=== PATIENT | female | born 1965 | race African-American/Black ===

== ENCOUNTER 2016-12-21 11:59 | Inpatient (IN) ==
--- NOTE | 2016-12-21 12:24 | Emergency Department Note ---
Arrival - Arrival Chief Complaint: Non-Specific Stated Complaint: H&H is low ED Nursing Triage Note: States she was sent from Dr. Martínez' office for further evaluation of low H&H. Reports she was told her hemoglobin was 4. Denies any symptoms. Mode of Arrival: Ambulatory Limitations: No Limitations Source: Patient Time Seen by Provider: 12/21/16 12:20 - History of Present Illness HPI Narrative: This 51-year-old black female who presents on referral from Dr. Martínez's office for alleged hemoglobin of 4.0. The patient denies any significant complaints of orthostasis, dizziness, chest pain, shortness of breath, bright red blood per bowel movement, black tarry bowel movement movements, severe reflux, or jaundice. She does state she has a long-standing history of chronic anemia. Currently she is in no distress and feels quite normal. Onset (ago): unknown Date of Last Menstrual Period: 12/10/16 Allergies/Adverse Reactions: Allergies Allergy/AdvReac Type Severity Reaction Status Date / Time Penicillins Allergy HIVES Verified 06/12/15 21:19 Home Medications: Home Medications Medication Instructions Recorded Confirmed Type LORazepam TAB [Ativan Tab] 1 mg PO BID PRN #20 tablet 06/12/15 Rx hydroCHLOROthiazide 25 mg PO DAILY 06/12/15 06/12/15 History [Hydrochlorothiazide] Furosemide Tab [Lasix Tab] 20 mg PO DAILY 5 Days 11/29/16 Rx Spironolactone [Spironolactone] 50 mg PO DAILY 12/21/16 History Review of System - Review of System 12 point system: reviewed and no additional remarkable complaints except as stated - Review of System Constitutional: Present: as per HPI Respiratory: Present: as per HPI Cardiovascular: Present: as per HPI Gastrointestinal: Present: as per HPI Medical,Surgical,& Family Hx - Medical History Cardio: History of: Hypertension Endocrine: History of: Thyroid Disorder Hematology: History of: Anemia - Social History Smoking Status: Never smoker Frequency of Alcohol Use: None Type of Drug Use: None Exam Physical Examination: GENERAL: Obese black female in no acute distress. HEENT: Normocephalic. No trauma. Moist but very pale mucous membranes. EOMI. PERRLA. ENT NML NECK: Supple. No adenopathy. CARDIAC: Regular. No murmurs. Heart rate 75 CHEST: Clear to auscultation. No respiratory distress. O2 sat 100% ABDOMEN: Soft. Nontender. Active bowel sounds. EXTREMITIES: No trauma. Normal ROM. No pedal edema. SKIN: No diaphoresis. No rash. Very pale nailbeds NEURO: Alert. Neuro intact. No focal deficits. Vital Signs: Vital Signs Temperature 98.6 F 12/21/16 12:05 Pulse Rate 66 12/21/16 12:05 Respiratory Rate 16 12/21/16 12:05 Blood Pressure 174/80 12/21/16 12:05 O2 Sat by Pulse Oximetry 100 12/21/16 12:05 Course - Reevaluation(s) Reevaluation #1: Advised patient that her low hemoglobin was true and that she would need hospitalization especially in light of possible high output failure as documented on chest x-ray. - Consultations Consultation #1: Discussed with hospitalist service who will admit for further evaluation treatment. Results - Labs CBC & BMP: 12/21/16 12:26 12/21/16 12:26 Labs: I have reviewed the lab and noted the significantly abnormal hemoglobin but normal folate, bilirubin, and B12 levels. - Diagnostic Findings Procedure: Chest x-ray: image reviewed by me, report reviewed by me ( Cardiomegaly with borderline pulmonary edema with an instructor scheduled fluid versus scar) Disposition Clinical Impression: Severe anemia, High-output failure Case discussed with: patient Disposition: Still a Patient Condition: Guarded Time of Disposition: 13:40
[2016-12-21 12:59] LABS: PT Patient Result 10.6 SECS; Partial Thromboplastin Time 21.7 SECS (0-40)
[2016-12-21 13:06] LABS: Eosinophils # 0.1 10*3/uL (0.0-0.87); Immature Granulocytes % 0.2 %; Immature Granulocytes Absolute 0.01 #; Lymphocytes # 2.2 10*3/uL (1.4-4.0); Lymphocytes % 54.1 % (21.3-54.2); Mean Corpuscular HGB Conc 24.6 GM/DL (32-36); Mean Corpuscular Hemoglobin 16 PG (27-34); Mean Corpuscular Volume 65.6 FL (87-102); Mean Platelet Volume 9.5 FL (9.6-12.0); Monocytes # 0.5 10*3/uL (0.11-0.8); Monocytes % 11.9 % (1.7-12.7); Neutrophils # 1.3 10*3/uL (1.4-7.4); Neutrophils % 31.8 % (38.7-73.9); Platelet Count 445 T/CUMM (130-400); Red Blood Count 2.73 MC/CUMM (3.8-5.5); Red Cell Distribution Width 28.5 % (9.3-17.3)
--- NOTE | 2016-12-21 13:10 | XRay Report ---
XR chest 1V portable Indication: SOB Comparison: None Technique: Single frontal view of the chest. Findings: Borderline cardiomegaly. There is nonspecific prominence of lung markings suspicious for interstitial pulmonary edema. Chronic/fibrotic change and interstitial pneumonia may have similar appearance. Visualized osseous and surrounding soft tissue structures demonstrate no acute abnormality. IMPRESSION: As above. PROCEDURE INTERPRETED AT [facility] DEPARTMENT OF RADIOLOGY Final Report Signed by: Dr Vicente Hatfield
[2016-12-21 13:14] LABS: Hematocrit 17.9 VOL% (35.7-47.0); Hemoglobin 4.4 GM/DL (12.0-16.0)
[2016-12-21 13:24] LABS: Folate 19.1 NG/ML (5.4-24.0)
[2016-12-21 13:28] LABS: % Iron Saturation 3.5 % (18-50); Alanine Aminotransferase 14 U/L (13-56); Albumin 3.4 G/DL (3.4-5.0); Alkaline Phosphatase 69 U/L (45-117); Aspartate Amino Transferase 13 U/L (0-37); Bilirubin,Total < 0.39 MG/DL (0.2-1.0); Blood Urea Nitrogen 9 MG/DL (7-18); Calcium 9.4 MG/DL (8.5-10.1); Glucose 87 MG/DL (74-106); Iron 15 UG/DL (50-170); Iron Binding Capacity 431 UG/DL (250-450); Osmolality,Calculated 278.3 MOS/KG (273-304); Potassium 4.2 MMOL/L (3.5-5.1); Sodium 141 MMOL/L (136-145); Total Protein 6.5 G/DL (6.4-8.3); Troponin I Only < 0.015 NG/ML (0.00-0.045)
[2016-12-21] MEDS ORDERED: DOCUSATE SODIUM 100 MG CAPSULE PO PRN (15:08)
[2016-12-21] MEDS ORDERED: ACETAMINOPHEN 325 MG TABLET PO PRN (15:08)
[2016-12-21] MEDS ORDERED: ONDANSETRON 4 MG/2 ML VIAL IV PRN (15:08)
[2016-12-21] MEDS ORDERED: SODIUM CHLORIDE 0.9% 250 ML IV PRN ×2 (15:08→16:06)
--- NOTE | 2016-12-21 15:20 | Hospitalist History & Physical ---
<Naomi Oropeza - Last Filed: 12/21/16 15:25> Assessment and Plan (1) Anemia Status: Acute Assessment and plan: Admitted to monitored bed. Type and screen stat. Blood transfusion. Serial H& H's. Consult GI. Clear liquid diet. IV fluids. Repeat labs in am. Anemia profile. Current Visit: Yes (2) Hypertension Status: Acute Assessment and plan: Restart home medications. Current Visit: Yes History of Present Illness Chief complaint: Low H&H History of present illness: Ms. Ryder is a 51 year old black female with a history of hypertension that presents to the ED after being seen in Dr. Martínez's office. Patient stated that she was at the clinic for a follow-up on blood pressure and labs were obtained. Patient was found to have hemoglobin of 4, sent over for further evaluation. Patient reports feeling tired lately but denies any dizziness, shortness of breath, chest pain, blood in urine or stool, black tarry stools, epistaxis, or reflux. Patient does report being diagnosed with anemia in the past when has never had to receive a blood transfusion. Patient still has a menstrual cycle and stated that her period is normally 5 days with moderate to heavy blood flow on days 3-5. Patient also reports she was advised to get a hysterectomy in the past. Patient's primary care provider is Dr. Elaine Renee. Patient will be admitted to the hospitalist service for further evaluation and treatment. GI will be consulted. Home Medications Medication Instructions Recorded Confirmed Type Potassium Chloride 8 meq PO DAILY 12/21/16 12/21/16 History Spironolactone [Spironolactone] 50 mg PO DAILY 12/21/16 12/21/16 History Allergies Allergy/AdvReac Type Severity Reaction Status Date / Time Penicillins Allergy HIVES Verified 06/12/15 21:19 Medical,Surgical,& Family Hx - Medical History Cardio: History of: Hypertension Endocrine: History of: Thyroid Disorder Hematology: History of: Anemia - Social History Smoking Status: Never smoker Frequency of Alcohol Use: None Type of Drug Use: None Marital Status: Single Lives With:: Alone Functional capacity: independent ambulation - Constitutional Constitutional: Absent: chills, fever(s) - EENT Eyes: Absent: blurry vision, loss of vision Ears: Absent: decreased hearing, ear discharge Nose, mouth and throat: Absent: dysphagia, epistaxis, vertigo - Cardiovascular Cardiovascular: Present: edema. Absent: chest pain at rest, dyspnea on exertion - Respiratory Respiratory: Absent: cough, dyspnea, hemoptysis - Gastrointestinal Gastrointestinal: Absent: abdominal pain, melena, nausea, vomiting - Genitourinary Genitourinary: Absent: difficulty urinating, hematuria - Musculoskeletal Musculoskeletal: Absent: back pain, limited range of motion - Neurological Neurological: Absent: confusion, numbness - Psychiatric Psychiatric: Absent: confusion, depression - Hematologic/Lymphatic Hematologic/Lymphatic: Absent: easy bruising Exam - Constitutional Vitals: Period Temp Pulse Resp BP Sys/Green Pulse Ox Last 24 Hr 98.6 F-98.6 F 57-70 16-18 129-174/48-80 100-100 General appearance: normal weight, over weight - Head Head exam: Present: normal inspection, normocephalic - Eye Eye exam: Present: EOMI. Absent: periorbital swelling Pupils: Present: JULIANNA. Absent: dilated - ENT ENT exam: Present: normal exam - Neck Neck exam: Present: normal inspection. Absent: thyromegaly - Respiratory Respiratory exam: Present: clear to auscultation bilaterally. Absent: wheezes - Cardiovascular Cardiovascular exam: Present: regular rate and rhythm. Absent: JVD - GI/Abdominal GI/Abdominal exam: Present: normal bowel sounds, soft. Absent: tenderness - Extremities Exam Extremities exam: Present: normal capillary refill, full ROM, edema - Back Exam Back exam: Present: normal inspection - Neurological Exam Neurological exam: Present: alert, oriented X3, normal gait - Psychiatric Psychiatric exam: Present: normal affect, normal mood, depressed - Skin Skin exam: Present: normal color, warm, dry Results - Labs CBC & BMP: 12/21/16 12:26 12/21/16 12:26 Lab Results: I have reviewed the past 24 hour labs <Tabatha Srinivasan - Last Filed: 12/21/16 16:17> Assessment and Plan (1) Iron deficiency anemia due to chronic blood loss Status: Acute Assessment and plan: consult Dr. Malone, clear liquids, iron infusion, 4 units of PRBC Current Visit: Yes (2) Hypertension Status: Acute Assessment and plan: cont spironolactone, normal bnp, echo Current Visit: Yes (3) Morbid obesity Status: Acute Assessment and plan: already trying to lose weight Current Visit: Yes History of Present Illness History of present illness: Ms. Ryder is a 51 year old female Medical,Surgical,& Family Hx - Medical History Cardio: History of: Cardiovascular Problems (palpitations) - Surgical History Additional Surgical History: none - Family History Family History: Reports;: Family Hypertension Denies;: Family Diabetes, Family Heart Disease, Family Stroke - Gastrointestinal Gastrointestinal: Absent: coffee ground emesis, constipation, diarrhea, dyspepsia, heartburn, hematochezia - Endocrine Endocrine: Present: fatigue, heat intolerance Exam - Constitutional Vitals: Period Temp Pulse Resp BP Sys/Green Pulse Ox Last 24 Hr 98.6 F-98.6 F 57-70 16-18 129-174/48-80 100-100 - Eye Eye exam: Absent: scleral icterus Pupils: Present: normal accommodation - Neck Neck exam: Present: thyromegaly (goiter ). Absent: lymphadenopathy - Neurological Exam Neurological exam: Present: CN II-XII intact, reflexes normal. Absent: motor sensory deficit - Psychiatric Psychiatric exam: Absent: depressed - Skin Skin exam: Present: other (pale conjunctiva ) Results - Labs CBC & BMP: 12/21/16 12:26 12/21/16 12:26 - Diagnostic Findings Procedure: Chest x-ray: report reviewed by me (pulmonary edema )
[2016-12-21] MEDS: SODIUM CHLORIDE 0.9% 1,000 ML IV SCH (16:49)
[2016-12-21] MEDS ORDERED: IRON DEXTRAN 50 MG in SYRINGE 1 EACH IV ONE (17:00)
[2016-12-21 20:34] LABS: Anisocytosis 1+; Hypochromasia 2+; Poikilocytosis 1+
[2016-12-21 20:35] LABS: Microcytosis 2+; Platelet Estimate Increased; Tear Drop Cells Few
[2016-12-21] MEDS: PANTOPRAZOLE 40 MG TABLET PO SCH (20:52)
[2016-12-22] MEDS: SODIUM CHLORIDE 0.9% 1,000 ML IV SCH ×2 (04:42→18:46)
[2016-12-22 07:12] LABS: Basophils % 0.6 % (0.0-0.8); Eosinophils # 0.1 10*3/uL (0.0-0.87); Eosinophils % 1.7 % (0.00-10.9); Hematocrit 27.6 VOL% (35.7-47.0); Hemoglobin 7.9 GM/DL (12.0-16.0); Immature Granulocytes % 0.2 %; Immature Granulocytes Absolute 0.01 #; Lymphocytes # 2.1 10*3/uL (1.4-4.0); Lymphocytes % 44.8 % (21.3-54.2); Mean Corpuscular HGB Conc 28.6 GM/DL (32-36); Mean Corpuscular Hemoglobin 21 PG (27-34); Mean Corpuscular Volume 72.6 FL (87-102); Monocytes # 0.5 10*3/uL (0.11-0.8); Monocytes % 9.6 % (1.7-12.7); Neutrophils % 43.1 % (38.7-73.9); Platelet Count 342 T/CUMM (130-400); Red Cell Distribution Width 27.8 % (9.3-17.3); White Blood Count 4.7 T/CUMM (4-12)
[2016-12-22 07:13] LABS: Hematocrit 28.2 VOL% (35.7-47.0); Hemoglobin 8.1 GM/DL (12.0-16.0)
[2016-12-22] MEDS ORDERED: SODIUM CHLORIDE 0.9% IV ONE (08:00)
[2016-12-22] MEDS ORDERED: IRON DEXTRAN IV ONE (08:00)
[2016-12-22 08:28] LABS: Calcium 8.9 MG/DL (8.5-10.1); Magnesium 1.9 MG/DL (1.8-2.4); Osmolality,Calculated 277.3 MOS/KG (273-304); Risk Ratio 2.05; Thyroid Stimulating Hormone 2.62 uIU/ml (0.358-3.74); VLDL CHOLESTEROL 8.2 MG/DL
[2016-12-22] MEDS: PANTOPRAZOLE 40 MG TABLET PO SCH ×2 (08:56→20:51)
[2016-12-22] MEDS: SPIRONOLACTONE 50 MG TABLET PO SCH (08:56)
[2016-12-22 10:23] LABS: Hypochromasia 2+; Microcytosis 1+; Platelet Estimate Adequate; Target Cells Slight
--- NOTE | 2016-12-22 12:41 | Hospitalist Progress Note ---
Assessment and Plan (1) Iron deficiency anemia due to chronic blood loss Status: Acute Assessment and plan: consult Dr. Guillermo, hemoglobin is 8 today, EGD and colonoscopy most likely on Saturday. Continue iron infusion Current Visit: Yes (2) Hypertension Status: Acute Assessment and plan: cont spironolactone, echocardiogram done but reading is pending. Current Visit: Yes (3) Morbid obesity Status: Acute Assessment and plan: already trying to lose weight Current Visit: Yes Hospitalist: Subjective Interval history: Patient feels much better after 4 units of blood. We will advance full liquid diet. Patient will be seen by Dr. Guillermo today but will need an EGD and colonoscopy on Saturday. Patient currently getting iron infusion. We will start her on MiraLAX as she has not had a bowel movement we need to guaiac her stools. Exam - Constitutional Vitals: Period Temp Pulse Resp BP Sys/Green Pulse Ox Last 24 Hr 98.0 F-99.2 F 52-73 16-20 107-157/46-94 98-100 Exam: Heart Rate-[RRR] Lungs-[CTAB] GI-[+bs soft, NT] Ext-[no edema] Neuro [Motor 5/5], [alert and oriented times 3] psych [normal mood and affect] General [no acute distress] Conjunctiva still looking pale Results - Labs CBC & BMP: 12/22/16 06:48 12/22/16 06:48 Lab Results: I have reviewed the past 24 hour labs
[2016-12-22] MEDS: POLYETHYLENE GLYCOL POWDER 17 GM PACK PO SCH (12:47)
--- NOTE | 2016-12-22 12:59 | Gastrointestinal Consult Note ---
Assessment and Plan - Time spent with patient Time spent with patient: Greater than 30 minutes (1) Iron deficiency anemia due to chronic blood loss Status: Acute Current Visit: Yes (2) Other specified counseling Status: Acute Current Visit: Yes History of Present Illness History of present illness: Ms. Ryder is a 51 year old female Home Medications Medication Instructions Recorded Confirmed Type Potassium Chloride 8 meq PO DAILY 12/21/16 12/21/16 History Spironolactone [Spironolactone] 50 mg PO DAILY 12/21/16 12/21/16 History Allergies Allergy/AdvReac Type Severity Reaction Status Date / Time Penicillins Allergy HIVES Verified 06/12/15 21:19 Medical,Surgical,& Family Hx - Medical History Cardio: History of: Hypertension, Cardiovascular Problems (palpitations) Endocrine: History of: Thyroid Disorder Hematology: History of: Anemia - Family History Family History: Reports;: Family Hypertension Denies;: Family Anesthesia Reaction, Family Cancer, Family Diabetes, Family Heart Disease, Family Hematology, Family Psychiatric Problems, Family Stroke, Additional Family History - Social History Smoking Status: Never smoker Frequency of Alcohol Use: None Type of Drug Use: None Exam - Constitutional Vitals: Period Temp Pulse Resp BP Sys/Green Pulse Ox Last 24 Hr 98.0 F-99.2 F 52-73 16-20 107-157/46-94 98-100 Results - Labs CBC & BMP: 12/22/16 06:48 12/22/16 06:48 Note Addendum: PLEASE NOTE -- automatic citation of patient information is unavoidable in this electronic note. I have made a reasonable effort to review the information cited , but it is not a part of my evaluation, impression, or recommendation unless specifically discussed in the dictated text that follows. As well, voice recognition software was used in the creation of this clinical note. Reasonable effort was made to identify and correct gross errors. Despite proofreading, errors in flumer may be present, including nonsense verbiage at times. If you encounter such an error, please contact me at for discussion and correction. -- [place] Chief complaint: symptomatic anemia History of present illness: This is a new patient, a 51-year-old female seen by consultation for evaluation of symptomatic anemia. The patient is admitted to the hospitalist service under the care of Dr. Srinivasan with a primary diagnosis of same. The patient was admitted yesterday through the emergency department with primary complaint of fatigue. Evaluation at that time revealed severe anemia with hemoglobin less than 5 g/dL but intact hemodynamics. The patient reported no overt gastrointestinal bleeding but did note that she has not reached menopause and has always had heavy periods. As well, she had previously been advised to consider hysterectomy due to dysfunctional uterine bleeding but has not done so. Since her admission, she has been transfused for units of packed red blood cells with appropriate response. She reports feeling a good deal better than she did when she came in. Patient denies fever, chills, night sweats, rigors, headache, dizziness, neck pain, visual changes, redness of the eyes, dysphagia, odynophagia, difficulty chewing, chest pain, shortness of breath, abdominal pain, weight loss, nausea, vomiting, regurgitation, hematemesis, diarrhea, hematochezia, melena, proctalgia , constipation, change in bowel pattern generally, dysuria, skin changes, temperature regulation issues, flushing, easy bleeding/bruising, musculoskeletal pain, mental status change, numbness/weakness in the extremities , yellowing of the eyes/skin, cutaneous eruptions, family history of gastrointestinal cancer and colon polyps, and other complaints in general. Review of systems: 12 point review of systems was negative except as documented above. Outpatient medications: Aldactone, potassium chloride Inpatient medications: Tylenol, [place], Colace, iron dextran, Zofran, Protonix, MiraLAX, normal saline, Aldactone Past Medical History: hypertension, thyroid disorder, anemia Social history: negative tobacco. Negative alcohol Family history: no gastrointestinal cancers Physical examination: Vital Signs: Current vital signs reviewed and documented above. General Appearance: well-appearing. Not acutely ill. Head: Normocephalic. Neck: Palpation of the neck revealed no abnormalities. Eyes: No scleral icterus. No scleral injection. No conjunctival pallor. Oral Cavity: Odor of breath was normal. No drooling was observed. Lips showed no abnormalities. Floor of the mouth showed no abnormalities. Pharynx: Oropharynx was normal. Lungs: Respiration rhythm and depth was normal. Cardiovascular: Heart rate and rhythm were normal. No murmurs were appreciated. Abdomen: abdomen was not distended. Abdominal palpation revealed no tenderness and no hepatosplenomegaly. Ascites was not discovered. Abdominal auscultation revealed positive bowel sounds. Musculoskeletal System: Musculoskeletal system was grossly normal. Neurological: level of consciousness was normal. Speech was normal. Skin: General appearance was normal. Color and pigmentation were normal. No skin lesions. Laboratory: white blood count 4.7, hemoglobin 4.4 --> transfusion --> 8.1, hematocrit 17.9 --> transfusion --> 20.2, platelets 342, INR 1.0, PT 10.6, ferritin 1.2, iron saturation 3.5, total iron binding capacity 431 Radiology: reviewed Impressions: 1. Symptomatic anemia -- the patient reports no overt gastrointestinal bleeding. She does report heavy menstrual periods on a regular basis and, with her profound iron deficiency, it's likely this anemia has developed over time, related to that. I agree with transfusion as given and iron infusion as well. Proton pump inhibitor is reasonable. Presuming she continues to feel well and does not develop overt gastrointestinal bleeding, she should follow-up in the outpatient gastroenterology clinic for both upper and lower endoscopy to ensure no evidence of gastrointestinal etiology. 2. Other specified counseling -- The patient was seen for greater than 30 minutes. The patient was counseled for greater than 50% of this time regarding differential diagnosis, likely diagnosis, diagnostic and therapeutic alternatives, risks/benefits/alternatives of medications and procedures, and plan of care generally. The patient expressed understanding and wishes to proceed. Recommendations: -- continued volume management -- continued monitoring of blood counts with further transfusion as indicated -- agree with iron replacement -- upper and lower endoscopy during convalescence -- consider gynecology evaluation -- thank you for this consultation. We will follow with you.
[2016-12-23 05:18] LABS: Basophils % 0.8 % (0.0-0.8); Eosinophils # 0.1 10*3/uL (0.0-0.87); Eosinophils % 1.9 % (0.00-10.9); Hematocrit 28.2 VOL% (35.7-47.0); Hemoglobin 8.1 GM/DL (12.0-16.0); Immature Granulocytes % 0.2 %; Immature Granulocytes Absolute 0.01 #; Lymphocytes # 2.6 10*3/uL (1.4-4.0); Lymphocytes % 50.3 % (21.3-54.2); Mean Corpuscular HGB Conc 28.7 GM/DL (32-36); Mean Corpuscular Hemoglobin 21 PG (27-34); Mean Corpuscular Volume 73.2 FL (87-102); Mean Platelet Volume 10.1 FL (9.6-12.0); Monocytes # 0.5 10*3/uL (0.11-0.8); Monocytes % 9.6 % (1.7-12.7); Neutrophils # 1.9 10*3/uL (1.4-7.4); Neutrophils % 37.2 % (38.7-73.9); Platelet Count 288 T/CUMM (130-400); Red Blood Count 3.85 MC/CUMM (3.8-5.5); Red Cell Distribution Width 28.1 % (9.3-17.3); White Blood Count 5.2 T/CUMM (4-12)
[2016-12-23 05:42] LABS: Calcium 9.4 MG/DL (8.5-10.1); Osmolality,Calculated 282.8 MOS/KG (273-304)
[2016-12-23 06:26] LABS: Anisocytosis 1+; Hypochromasia 1+
[2016-12-23 06:30] LABS: Platelet Estimate Normal; Spherocytes Few
[2016-12-23] MEDS: SODIUM CHLORIDE 0.9% 1,000 ML IV SCH (08:42)
[2016-12-23] MEDS: PANTOPRAZOLE 40 MG TABLET PO SCH (08:43)
[2016-12-23] MEDS: POLYETHYLENE GLYCOL POWDER 17 GM PACK PO SCH (08:43)
[2016-12-23] MEDS: SPIRONOLACTONE 50 MG TABLET PO SCH (08:43)
[2016-12-23 09:19] VITALS: BP 152/56
--- NOTE | 2016-12-23 10:56 | Discharge Summary ---
<OropezaAidenwilly - Last Filed: 12/23/16 10:47> Hospital Course - Hospital Course Hospital Course: Ms. Ryder is a 51-year-old black female patient with a history of hypertension who presented to the ED after Dr. Martínez found that she had a hemoglobin of 4. She reports fatigue and heavy periods. She denies any black or tarry stools. GI was consulted. Patient received 4 units of packed red blood cells and her hemoglobin stablized at 8.1. Total iron was 15, TIBC 431, ferritin level is 1.2. Patient received an iron infusion and tolerated it well. GI feels that she needs an EGD and colonoscopy but this can be done as an outpatient. Most importantly GI recommends either hysterectomy or a ablation to stop her periods. Patient was discharged home to follow-up with Dr. Malone and Dr. Martínez from [facility]. Only test pending at this time an echocardiogram was done and the results are still pending. Diagnosis - Discharge Diagnosis (1) Anemia Status: Acute (2) Hypertension Status: Acute Discharge Plan - Discharge Data Disposition: Disch To Home/Self Care - Discharge Medications New Pantoprazole Tab [Protonix Tab] 40 mg PO DAILY #30 tablet Continue Spironolactone 50 mg PO DAILY Discontinued Potassium Chloride 8 meq PO DAILY - Follow Up or Referral Follow Up: Lev Malone MD [Physician] - 2 Weeks (outpatient egd and colonoscopy ) Jill Martínez MD [Physician] - 1 Week (needs hysterectomy or abalation ) - Forms/Instructions Exam - Constitutional Vitals: Period Temp Pulse Resp BP Sys/Green Pulse Ox Last 24 Hr 97.9 F-98.9 F 50-59 18-20 132-152/56-77 94-99 Discharge Results Procedures and tests throughout hospitalization: Pending Orders 12/21/16 16:02 Occult Blood, Stool Routine Labs on day of discharge: Labs from last 24 hours 12/23/16 12/23/16 04:32 04:32 WBC 5.2 RBC 3.85 Hgb 8.1 L Hct 28.2 L MCV 73.2 L MCH 21 L MCHC 28.7 L RDW 28.1 H Plt Count 288 MPV 10.1 Neut % (Auto) 37.2 L Lymph % (Auto) 50.3 [place] % (Auto) 9.6 Eos % (Auto) 1.9 Baso % (Auto) 0.8 Neut # (Auto) 1.9 Lymph # (Auto) 2.6 [place] # (Auto) 0.5 Eos # (Auto) 0.1 Baso # (Auto) 0.0 Immature Gran % 0.2 Nucleated RBC % 0.0 Immature Gran # 0.01 Nucleated RBCs # 0.00 Platelet Estimate Normal Hypochromasia 1+ Anisocytosis 1+ Spherocytes Few Sodium 144 Potassium 4.0 Chloride 109 H Carbon Dioxide 26 Anion Gap 13.0 BUN 5 L Creatinine 0.70 GFR Calculation 149 BUN/Creatinine Ratio 7.00 Glucose 90 Calculated Osmolality 282.8 Calcium 9.4 Magnesium 2.0 DS: Provider Date of admission: 12/21/16 14:13 Primary care physician: . No PCP Attending physician on admission: Tabatha Srinivasan MD Consults: 12/21/16 15:08 Consult to Physician [CONS] Routine Comment: Consulting Provider: Lev Malone Person Notified: aware Date Notified: 12/21/16 Time Notified: 16:02 12/21/16 16:08 Consult to Pharmacy [CONS] Routine Reason for Pharmacy Consult: Other Comment: please calculate and infuse iron 12/21/16 16:14 Consult to Pastoral Services [CONS] Routine Comment: Pastoral Screen: Request Project Buyer Visit Discharging clinician: Naomi Oropeza NP <Tabatha Srinivasan - Last Filed: 12/23/16 11:39> Hospital Course - Time spent with patient Time with patient DS: Less than 30 minutes (20 min) Diagnosis - Discharge Diagnosis (1) Iron deficiency anemia due to chronic blood loss Status: Acute (2) Hypertension Status: Acute (3) Morbid obesity Status: Acute Discharge Plan - Discharge Data Condition at Discharge: Stable Discharge Diet: low fat, low cholesterol Activity: resume usual activities as tolerated Hygiene: no restrictions Weight Bearing at Discharge: full weight bearing Driving: no restrictions Exam - Constitutional General appearance: normal weight, no acute distress - Respiratory Respiratory exam: Present: clear to auscultation bilaterally. Absent: rhonchi, wheezes - Cardiovascular Cardiovascular exam: Present: regular rate and rhythm. Absent: systolic murmur - GI/Abdominal GI/Abdominal exam: Present: normal bowel sounds, soft. Absent: tenderness
--- NOTE | 2016-12-23 12:32 | ECHO Report ---
Vandana Ryder Exam Date: 12/22/2016 09:28 Referring Physician: Technologist: Nat Pavon Age: 51 Ht (in): 64 Wt (lb): 258 Gender: F Exam Location: [facility] Echo Indications: SOB, anemia, HTN, morbid obesity BP: 140 / 68 HR: 58 Rhythm: Sinus Technical Quality: Good IMPRESSIONS Left ventricular ejection fraction is estimated at > 60 %. Mild mild concentric left ventricular hypertrophy. Mild mitral valve sclerosis. Trace - mild mitral valve regurgitation. Mild aortic valve sclerosis without stenosis or regurgitation. No pericardial effusion. No significant TR seen, so RVSP is probably normal. MEASUREMENTS (Male / Female) Normal Values 2D ECHO LV Diastolic Diameter PLAX 4.5 cm 4.2 - 5.9 / 3.9 - 5.3 cm LV Systolic Diameter PLAX 3.0 cm LV Fractional Shortening PLAX 33.4 % IVS Diastolic Thickness 1.4 cm 0.6 - 1.0 / 0.6 - 0.9 cm LVPW Diastolic Thickness 1.3 cm 0.6 - 1.0 / 0.6 - 0.9 cm RV Internal Dim ED PLAX 2.7 cm Aortic Root Diameter 2.6 cm LA Systolic Diameter LX 3.8 cm 3.0 - 4.0 / 2.7 - 3.8 cm FINDINGS Left Ventricle Mild mild concentric left ventricular hypertrophy. Left ventricular ejection fraction is estimated at > 60 %.normal left ventricular cavity size. Right Ventricle Normal right ventricular size. Right Atrium Normal right atrial size. Left Atrium Normal left atrial size. Mitral Valve Mild mitral valve sclerosis. Trace - mild mitral valve regurgitation. Aortic Valve Mild aortic valve sclerosis without stenosis or regurgitation. Tricuspid Valve Morphologically normal tricuspid valve. no significant TR seen, so RVSP is probably normal Pulmonic Valve Morphologically normal pulmonic valve. Pericardium No pericardial effusion. Aorta Normal size aortic root and proximal ascending aorta. Kevin Alston MD (Electronically Signed) Final Date: 23 December 2016 12:11
== END 2016-12-23 13:26 | disposition home or self-care (01) | DRG 812 ==
LOC: N.ED 11:59 → N.EDINP 14:13 → N.5E 15:52
PROVIDERS: ADMIT Internal Medicine; ATTEND Internal Medicine

== ENCOUNTER 2017-07-24 06:31 | Inpatient (IN) ==
[2017-07-22 13:06] LABS: Basophils % 0.4 % (0.0-0.8); Eosinophils # 0.1 10*3/uL (0.0-0.87); Eosinophils % 2.8 % (0.00-10.9); Hematocrit 37.3 VOL% (35.7-47.0); Hemoglobin 11.7 GM/DL (12.0-16.0); Immature Granulocytes % 0.2 %; Immature Granulocytes Absolute 0.01 #; Lymphocytes # 2.2 10*3/uL (1.4-4.0); Lymphocytes % 48.6 % (21.3-54.2); Mean Corpuscular HGB Conc 31.4 GM/DL (32-36); Mean Corpuscular Hemoglobin 30 PG (27-34); Mean Corpuscular Volume 96.9 FL (87-102); Mean Platelet Volume 11.2 FL (9.6-12.0); Monocytes # 0.3 10*3/uL (0.11-0.8); Monocytes % 7.2 % (1.7-12.7); Neutrophils # 1.9 10*3/uL (1.4-7.4); Neutrophils % 40.8 % (38.7-73.9); Platelet Count 254 T/CUMM (130-400); Red Blood Count 3.85 MC/CUMM (3.8-5.5); Red Cell Distribution Width 13.5 % (9.3-17.3); White Blood Count 4.6 T/CUMM (4-12)
[2017-07-22 13:21] LABS: Apearance,Urine CLEAR (Clear); Bacteria,Urine Occasional /HPF (Few); Bilirubin,Urine Negative (Negative); Blood, Urine Large mg/dL (Negative); Glucose,Urine (UA) Negative (Negative); Hyaline Casts,Urine 1 /LPF (0-3); Ketones,Urine Negative (Negative); Mucus,Urine Occasional /LPF (Occasional); Nitrite,Urine Negative (Negative); Protein,Urine Negative; RBC,Urine 1 /HPF (0-4); Squamous Epithelial Cell,Urine Occasional /HPF (0-10); Urine Color Yellow (Yellow); Urine Specific Gravity 1.017 (1.001-1.035); Urine Urobilinogen < 2.0 EU/DL (0.2-1.0); WBC,Urine 1 /HPF (0-6)
[2017-07-22 13:29] LABS: Risk Ratio 2.61; VLDL CHOLESTEROL 9.8 MG/DL
[2017-07-22 14:16] LABS: HIV Antigen/Antibody Result Nonreactive (Nonreactive)
[2017-07-22 16:04] LABS: Alanine Aminotransferase 16 U/L (13-56); Albumin 3.8 G/DL (3.4-5.0); Alkaline Phosphatase 84 U/L (45-117); Aspartate Amino Transferase 13 U/L (0-37); Bilirubin,Total < 0.39 MG/DL (0.2-1.0); Blood Urea Nitrogen 10 MG/DL (7-18); Calcium 9.5 MG/DL (8.5-10.1); Glucose 81 MG/DL (74-106); Osmolality,Calculated 278.3 MOS/KG (273-304); Potassium 4.5 MMOL/L (3.5-5.1); Sodium 141 MMOL/L (136-145); Total Protein 7.1 G/DL (6.4-8.3)
[~2017-07-24 06:31] MED LIST: CLINDAMYCIN INJ 900 MG in PREMIX 1 EACH IV ONE
[2017-07-24] MEDS ORDERED: FAMOTIDINE 20 MG TABLET PO ONE (07:53)
[2017-07-24] MEDS ORDERED: DIAZEPAM 5 MG TABLET PO ONE (07:53)
[2017-07-24] MEDS ORDERED: MICROFIBRILLAR COLLAGEN POWDER 1 GM CAN TOP ONE (08:31)
[2017-07-24] MEDS ORDERED: LEVOFLOXACIN INJ 500 MG in PREMIX 1 EACH IV ONE (08:32)
[2017-07-24] MEDS ORDERED: CLINDAMYCIN INJ 50 ML IV ONE (08:33)
[2017-07-24] MEDS ORDERED: LEVOFLOXACIN INJ 100 ML IV ONE (08:33)
[2017-07-24] MEDS ORDERED: LACTATED RINGERS 1,000 ML IV SCH (09:00)
[2017-07-24] MEDS ORDERED: PROPOFOL 200 MG/20 ML VIAL IV ONE (10:56)
[2017-07-24] MEDS ORDERED: fentaNYL 100 MCG/2 ML VIAL ONE (10:56)
[2017-07-24] MEDS ORDERED: SEVOFLURANE 1 UNIT/15 MINUTE INH ONE (10:56)
[2017-07-24] MEDS ORDERED: MIDAZOLAM 2 MG/2 ML VIAL ONE (10:56)
[2017-07-24] MEDS ORDERED: ONDANSETRON 4 MG/2 ML VIAL ONE (10:56)
[2017-07-24] MEDS ORDERED: DEXAMETHASONE 10 MG/1 ML VIAL ONE (10:56)
[2017-07-24] MEDS ORDERED: NEOSTIGMINE 10 MG/10 ML VIAL ONE (10:57)
[2017-07-24] MEDS ORDERED: ACETAMINOPHEN 1,000 MG/100 ML VIAL IV ONE (10:57)
[2017-07-24] MEDS ORDERED: ROCURONIUM 100 MG/10 ML VIAL IV ONE (10:57)
[2017-07-24] MEDS ORDERED: LACTATED RINGERS 1,000 ML IV ONE (10:57)
[2017-07-24] MEDS ORDERED: GLYCOPYRROLATE 0.4 MG/2 ML VIAL ONE (10:57)
[2017-07-24] MEDS: HYDROmorphone 2 MG/1 ML VIAL IV PRN ×4 (11:00→11:15)
[2017-07-24] MEDS ORDERED: ONDANSETRON 4 MG/2 ML VIAL IV PRN ×2 (11:08→12:07)
[2017-07-24] MEDS ORDERED: MEPERIDINE 25 MG/1 ML VIAL IV PRN (11:20)
[2017-07-24 11:40] LABS: Apearance,Urine CLEAR (Clear); Bilirubin,Urine Negative (Negative); Blood, Urine Negative (Negative); Glucose,Urine (UA) Negative (Negative); Ketones,Urine 5 mg/dL (Negative); Nitrite,Urine Negative (Negative); Protein,Urine Negative; Urine Color Straw (Yellow); Urine Specific Gravity 1.005 (1.001-1.035); Urine Urobilinogen < 2.0 EU/DL (0.2-1.0); WBC,Urine <1 /HPF (0-6)
[2017-07-24] MEDS ORDERED: NALOXONE 0.4 MG/ML VIAL IV PRN (12:07)
[2017-07-24] MEDS ORDERED: BENZOCAINE/MENTHOL LOZENGE 18/BOX PO PRN (12:07)
[2017-07-24] MEDS ORDERED: BISACODYL 10 MG SUPP RECTAL PRN (12:07)
[2017-07-24] MEDS ORDERED: ACETAMINOPHEN 325 MG TABLET PO PRN (12:07)
[2017-07-24] MEDS ORDERED: HYDROmorphone PCA 30 MG/30 ML SYRINGE IV SCH (12:07)
[2017-07-24] MEDS: LACTATED RINGERS 1,000 ML IV SCH ×2 (12:48→21:48)
[2017-07-24] MEDS: CLINDAMYCIN INJ 900 MG in PREMIX 1 EACH IV SCH ×2 (15:45→23:36)
[2017-07-24 20:31] LABS: Basophils % 0.1 % (0.0-0.8); Hematocrit 33.6 VOL% (35.7-47.0); Hemoglobin 10.6 GM/DL (12.0-16.0); Immature Granulocytes % 0.4 %; Immature Granulocytes Absolute 0.06 #; Lymphocytes # 0.6 10*3/uL (1.4-4.0); Lymphocytes % 3.8 % (21.3-54.2); Mean Corpuscular HGB Conc 31.5 GM/DL (32-36); Mean Corpuscular Hemoglobin 31 PG (27-34); Mean Corpuscular Volume 97.4 FL (87-102); Mean Platelet Volume 11.2 FL (9.6-12.0); Monocytes # 0.4 10*3/uL (0.11-0.8); Monocytes % 2.8 % (1.7-12.7); Neutrophils # 14.1 10*3/uL (1.4-7.4); Neutrophils % 92.9 % (38.7-73.9); Platelet Count 288 T/CUMM (130-400); Red Blood Count 3.45 MC/CUMM (3.8-5.5); Red Cell Distribution Width 13.2 % (9.3-17.3); White Blood Count 15.2 T/CUMM (4-12)
[2017-07-24 22:20] LABS: Band Neutrophils 2 % (0-10); Lymphocytes 8 % (20-55); Platelet Estimate Normal; Segmented Neutrophils 89 % (50-85); Total Cells Counted 100
[2017-07-25 05:53] LABS: Basophils % 0.1 % (0.0-0.8); Hematocrit 29.7 VOL% (35.7-47.0); Hemoglobin 9.4 GM/DL (12.0-16.0); Immature Granulocytes % 0.3 %; Immature Granulocytes Absolute 0.04 #; Lymphocytes # 1.4 10*3/uL (1.4-4.0); Lymphocytes % 12.1 % (21.3-54.2); Mean Corpuscular HGB Conc 31.6 GM/DL (32-36); Mean Corpuscular Hemoglobin 30 PG (27-34); Mean Corpuscular Volume 95.5 FL (87-102); Monocytes % 8.6 % (1.7-12.7); Neutrophils # 9.2 10*3/uL (1.4-7.4); Neutrophils % 78.9 % (38.7-73.9); Platelet Count 273 T/CUMM (130-400); Red Blood Count 3.11 MC/CUMM (3.8-5.5); Red Cell Distribution Width 13.3 % (9.3-17.3); White Blood Count 11.7 T/CUMM (4-12)
[2017-07-25] MEDS: DOCUSATE SODIUM 100 MG CAPSULE PO PRN ×2 (09:22→20:05)
[2017-07-25] MEDS: SIMETHICONE CHEW 80 MG TABLET PO PRN ×2 (09:22→20:05)
[2017-07-25] MEDS: MAGNESIUM HYDROXIDE SUSP 30 ML UDCUP PO PRN ×2 (09:23→20:05)
[2017-07-25] MEDS: SPIRONOLACTONE 50 MG TABLET PO SCH (09:26)
[2017-07-25] MEDS: IBUPROFEN 800 MG TABLET PO PRN (14:39)
[2017-07-25] MEDS: FERROUS SULFATE 325 MG TABLET PO SCH (20:05)
[2017-07-26] MEDS: IBUPROFEN 800 MG TABLET PO PRN (08:48)
[2017-07-26] MEDS: MAGNESIUM HYDROXIDE SUSP 30 ML UDCUP PO PRN ×3 (08:50→20:42)
[2017-07-26] MEDS: DOCUSATE SODIUM 100 MG CAPSULE PO PRN ×2 (08:50→20:42)
[2017-07-26] MEDS: METOCLOPRAMIDE 10 MG/2 ML VIAL IV SCH ×3 (08:50→21:09)
[2017-07-26] MEDS: FERROUS SULFATE 325 MG TABLET PO SCH ×2 (08:50→20:42)
[2017-07-26] MEDS: SPIRONOLACTONE 50 MG TABLET PO SCH (08:50)
[2017-07-26] MEDS ORDERED: MAGNESIUM CITRATE 300 ML BOTTLE PO ONE (16:07)
[2017-07-27 08:24] VITALS: BP 134/76
[2017-07-27] MEDS: SPIRONOLACTONE 50 MG TABLET PO SCH (09:12)
[2017-07-27] MEDS: FERROUS SULFATE 325 MG TABLET PO SCH (09:12)
== END 2017-07-27 12:35 | disposition home or self-care (01) | DRG 743 ==
LOC: N.OR 06:31 → N.SDSINP 06:32 → N.OB 10:46
PROVIDERS: ADMIT Obstetrics & Gynecology; ATTEND Obstetrics & Gynecology